=== PATIENT | male | born 1980 | race Caucasian/White ===

== ENCOUNTER 2021-07-09 18:22 | Emergency (ER) | payer OTHER ==
[~2021-07-09] VITALS: Ht 182.9 cm; Wt 81.7 kg
[2021-07-09] MEDS ORDERED: AMOX TR-K CLV1 EAC1 PO (19:33)
== END 2021-07-09 20:00 | disposition home or self-care (01) ==
LOC: ED 18:22
DX: S61.451A Open bite of right hand, initial encounter (principal); W54.0XXA Bitten by dog, initial encounter
CPT/HCPCS: 90471; 90714; 99283